=== PATIENT | male | born 1930 | race Caucasian/White ===

== ENCOUNTER 2016-09-22 22:17 | Emergency (ER) | payer OTHER ==
[~2016-09-22] VITALS: Ht 157.5 cm; Wt 97.1 kg
[~2016-09-22 22:17] MED LIST: ATIVAN0.5 MG PO; BABY ASPIRIN CH81 MG PO; BRIMONIDINE TART5 ML OPH; CIPRO 500MG TA500 MG PO; CRESTOR 5MG5 MG PO; DORZOLAMIDE HYD10 ML OPH; FLOMAX(MONOGRA0.4 MG PO; FLUOXETINE HYDR20 MG PO; LOPRESSOR 12.12.5 MG PO; PRINIVIL10 MG PO; TAMSULOSIN HYD0.4 MG PO; XALATAN 0.50 GTT/1 B OPH
[2016-09-22 23:11] LABS: ABSOLUTE BASOPHIL COUNT 0.1 /CUMM (0.0-0.2); ABSOLUTE EOSINOPHIL COUNT 0.2 /CUMM (0.0-0.7); ABSOLUTE GRANULOCYTE CT 6.5 /CUMM (1.4-6.5); ABSOLUTE LYMPH COUNT 1.4 /CUMM (1.2-3.4); BASOPHIL % 0.8 % (0.0-2.0); EOSINOPHIL % 1.7 % (0-5); GRANULOCYTE % 70.9 % (42.2-75.2); HEMATOCRIT 45.5 % (42-52); MEAN CORPUSCULAR HGB 28.2 PG (27.0-31.0); MEAN CORPUSCULAR HGB CONC 32.8 G/DL (33.0-37.0); MEAN PLATELET VOLUME 9.1 FL (7.4-10.4); PLATELET COUNT 178 /CUMM (130-400); RBC DISTRIBUTION WIDTH 14.5 % (11.5-14.5); RED BLOOD CELL CT 5.29 /CUMM (4.70-6.10); WHITE BLOOD CELL COUNT 9.1 /CUMM (4.8-10.8)
--- NOTE | 2016-09-22 23:23 | RADIOLOGY REPORT ---
EXAMINATION: XR PORTABLE CHEST CLINICAL INFORMATION: Cardiomegaly. Hypertension. Left arm pain. COMPARISON: Chest x-ray 01/30/2015 TECHNIQUE: Portable frontal view of the chest was obtained. 11:00 PM FINDINGS: No significant abnormality is noted involving the heart, lungs, mediastinum, bony thorax or soft tissues. IMPRESSION: No acute abnormality of the chest.
--- NOTE | 2016-09-23 00:22 | ED GENERAL ADULT ---
History of Present Illness General Chief Complaint: General Adult Stated Complaint: BIBA, L ARM PAIN Source: patient, family, old records, EMS Exam Limitations: no limitations Vital Signs & Intake/Output Vital Signs & Intake/Output Vital Signs Date Time Temp Pulse Resp B/P B/P Pulse O2 O2 Flow FiO2 Mean Ox Delivery Rate 09/23 0112 148/80 09/23 0108 128/80 09/23 0005 97.0 62 18 220/88 09/22 2326 60 16 210/96 09/22 2241 Room Air 09/22 2220 97.6 60 19 220/86 96 Room Air ED Intake and Output 09/23 0000 09/22 1200 Intake Total Output Total Balance Patient 214 lb Weight Weight Reported by Patient Measurement Method Allergies Coded Allergies: MDX - Celecoxib (From CELEBREX) (RASH 03/02/13) Reconcile Medications Aspirin (Children's Aspirin) 81 MG TAB 1 TAB PO DAILY BLOOD THINNING Brimonidine Tartrate (Brimonidine Tartrate 5 Ml) 5 ML ALVINA 1 GTT OPH BID GLAUCOMA (Reported) LEFT EYE Ciprofloxacin (Cipro) 500 MG TAB 1 TAB PO BID PSEUDOMONAS SEPSIS DORZOLAMIDE HCL/TIMOLOL MALEAT (Dorzolamide-Timolol Eye Drops) 10 ML ALVINA 1 GTT OPH BID GLAUCOMA (Reported) BOTH EYES FLUOXETINE HCL (Fluoxetine Hydrochloride) 20 MG CAP 1 CAP PO DAILY ANXIETY ( Reported) Latanoprost (Xalatan 0.005% 2.5 Ml) 50 GTT/1 BOT GTT 1 GTT OPH QPM GLAUCOMA ( Reported) BOTH EYES Lisinopril (Prinivil) 10 MG TAB 4 TAB PO DAILY HYPERTENSION Lorazepam (Ativan) 0.5 MG TAB 2 MG PO TID ANXIETY (Reported) Metoprolol Tartrate (Lopressor) 12.5 MG TAB 1 TAB PO BID HYPERTENSION Rosuvastatin Calcium (Crestor) 5 MG TAB 1 TAB PO DAILY CHOLESTEROL (Reported) Tamsulosin Hydrochloride (Flomax) 0.4 MG CAP 1 CAP PO DAILY BPH (Reported) Core Measure Meds Pre-Hospital aspirin Triage Note: BIBA FROM HOME FOR LEFT ARM PAIN. HAD [place] 1.5 YEARS AGO. 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 PT HYPERTENSIVE, 220/86 MANUALLY ON ARRIVAL. DENIES CP Triage Nurses Notes Reviewed? yes Onset: Just prior to arrival Duration: hour(s):, constant, continues in ED Timing: recent history Injury Environment: home Severity: mild No Modifying Factors: none HPI: One hour prior to admission patient complains of left arm pain mild in severity nonradiating constant. He denies fever chills nausea vomiting diarrhea abdominal pain chest pain shortness breath headache dysuria rash bleeding. Past History Travel History Traveled to [place] past 21 day No Medical History Any Pertinent Medical History? 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 No Review of Systems Review of Systems Constitutional: Reports: no symptoms. EENTM: Reports: no symptoms. Respiratory: Reports: no symptoms. Cardiovascular: Reports: no symptoms. GI: Reports: no symptoms. Genitourinary: Reports: no symptoms. Musculoskeletal: Reports: see HPI, joint pain, muscle pain. Skin: Reports: no symptoms. Neurological/Psychological: Reports: no symptoms. Hematologic/Endocrine: Reports: no symptoms. Immunologic/Allergic: Reports: no symptoms. All Other Systems: Reviewed and Negative Physical Exam Physical Exam General Appearance: well developed/nourished, alert, awake, anxious, mild distress Head: atraumatic, normal appearance Eyes: Bilateral: normal appearance, PERRL, EOMI. Ears, Nose, Throat: normal pharynx, normal ENT inspection, hearing grossly normal Neck: normal inspection, supple, full range of motion, no midline tenderness Respiratory: normal breath sounds, chest non-tender, no respiratory distress, quiet respiration, lungs clear Cardiovascular: regular rate/rhythm, normal peripheral pulses, norml femoral pulses equa Peripheral Pulses: 4+ carotid (R), 4+ carotid (L) Gastrointestinal: normal bowel sounds, soft, non-tender, no organomegaly Back: normal inspection, normal range of motion Extremities: normal inspection, normal capillary refill, normal range of motion, no edema Neurologic/Psych: no motor/sensory deficits, awake, alert, oriented x 3, normal gait, normal mood/affect, 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 Skin: intact, normal color, warm/dry Lymphatic: no anterior cervical frantz Core Measures ACS in differential dx? Yes ASA ordered for poss ACS? No-ACS ruled out CVA/TIA Diagnosis: No Severe Sepsis Present: No Septic Shock Present: No Progress Differential Diagnoses I considered the following diagnoses in my evaluation of the patient: Hypertension musculoskeletal pain Plan of Care: Orders Procedure Date/time Status TROPONIN LEVEL 09/22 2248 Complete COMPREHENSIVE METABOLIC PANEL 09/22 2248 Complete CBC WITHOUT DIFFERENTIAL 09/22 2248 Complete EKG 09/22 2221 Active Laboratory Tests 09/22/162258: Anion Gap 12, Estimated GFR > 60, BUN/Creatinine Ratio 17.0, Glucose 110 H, Calcium 9.0, Total Bilirubin 0.5, AST 25, ALT 33, Alkaline Phosphatase 85, Troponin I < 0.01, Total Protein 7.2, Albumin 4.0, Globulin 3.2, Albumin/ Globulin Ratio 1.3, CBC w Diff NO MAN DIFF REQ, RBC 5.29, MCV 86.0, MCH 28.2, RDW 14.5, MPV 9.1, Gran % 70.9, Lymphocytes % 15.8 L, Monocytes % 10.8 H, Eosinophils % 1.7, Basophils % 0.8, Absolute Granulocytes 6.5, Absolute Lymphocytes 1.4, Absolute Monocytes 1.0 H, Absolute Eosinophils 0.2, Absolute Basophils 0.1, PUBS MCHC 32.8 L Initial ED EKG: normal axis, normal intervals, normal p-waves, normal QRS complex, normal sinus rhythm, nonspecific ST T wave chg Prior EKG: unchanged Rhythm Strip: normal sinus rhythm Departure Departure Time of Disposition: 208 Disposition: HOME OR SELF CARE Condition: Stable Clinical Impression Primary Impression: Hypertension Qualifiers: Hypertension type: essential hypertension Qualified Code: I10 - Essential (primary) hypertension Secondary Impressions: Left arm pain Referrals: ANYI PÉREZ MD (PCP/Family) Departure Forms: Customer Survey General Discharge Information Critical Care Note Critical Care Note Critical Care Time: non-applicable
[2016-09-23 01:12] VITALS: BP 148/80
== END 2016-09-23 02:40 ==
LOC: ERH 22:17
PROVIDERS: Emergency Medicine
DX: I10 Essential (primary) hypertension (principal); M79.602 Pain in left arm; Z87.891 Personal history of nicotine dependence
CPT/HCPCS: 93005; 93010; 96374; 96375; J0360